=== PATIENT | male | born 1995 | race Caucasian/White ===

== ENCOUNTER 2017-10-05 13:03 | Emergency (ER) | payer MEDICAID ==
[~2017-10-05] VITALS: Ht 177.8 cm; Wt 158.0 kg
[2017-10-05 13:11] VITALS: BP 115/73; PULSE 82; RESP 19; TEMP 98.7; O2SAT 98
--- NOTE | 2017-10-05 13:27 | PD ---
HPI Chief Complaint: Allergic/Adverse Reaction Time Seen by Provider: 13:22 Travel History International Travel<30 days: No Contact w/Intl Traveler<30days: No Traveled to known affect area: No History of Present Illness HPI 22-year-old male with history of seizure disorder, presents emergency department for evaluation of swelling of his upper lip. Patient states he noticed he had a bump inside the left nare. His dad pulled some hairs from it and he thought that it would get better, however the lump only got worse and he woke up this morning with his lip swollen. He reports significant pressure with moderate pain at the site. It is constant. He has had no fever or chills. He has no other symptoms to report at this time. [facility] Social History Tobacco Use: No Allergies-Medications (Allergen,Severity, Reaction): Coded Allergies: divalproex sodium (Verified Allergy, Unknown, 10/05/17) lithium (Verified Allergy, Unknown, 10/05/17) Reported Meds & Prescriptions Reported Meds & Active Scripts Active Ibuprofen 800 Mg Tab 800 Mg PO Q8H PRN Keflex (Cephalexin) 500 Mg Cap 500 Mg PO Q6H 5 Days Bactrim DS (Sulfamethoxazole-Trimethoprim) 800-160 Mg Tab 1 Tab PO BID Reported Topiramate 200 Mg Tab 200 Mg PO BID Levetiracetam 1,000 Mg Tab 1,000 Mg PO BID Review of Systems Except as stated in HPI: all other systems reviewed are Neg Physical Exam Narrative GENERAL: Well-nourished, well-developed male patient in no acute distress SKIN: Focused skin assessment warm/dry. HEAD: Normocephalic. The top lip is edematous. EYES: No scleral icterus. No injection or drainage. ENT: Mucosa pink and moist. No erythema or exudates. No uvular edema. No uvular , palatal, or tonsillar deviation. Airway patent. Nasal turbinates appear normal without nasal blood, purulent drainage or septal hematoma. There is however a pustular lesion in the left nare along the septum. NECK: Supple, trachea midline. No JVD or lymphadenopathy. CARDIOVASCULAR: Regular rate and rhythm without murmurs, gallops, or rubs. RESPIRATORY: Breath sounds equal bilaterally. No accessory muscle use. Data Data Last Documented VS Vital Signs Date Time Temp Pulse Resp B/P (MAP) Pulse Ox O2 Delivery O2 Flow Rate FiO2 6/9/18 13:11 98.7 82 19 115/73 (87) 98 Orders Orders Wound Culture And Gram Stain (10/05/17 13:31) Dexamethasone Inj (Decadron Inj) (10/05/17 13:45) Ed Discharge Order (10/05/17 13:33) MDM Medical Decision Making Medical Screen Exam Complete: Yes Emergency Medical Condition: Yes Medical Record Reviewed: Yes Differential Diagnosis Pustule versus cellulitis versus abscess Narrative Course 22-year-old male presents emergency department for evaluation. Patient appears without distress. He does have a pustule in left nare with associated lip swelling. Patient will be treated for abscess and cellulitis. He is counseled on care. He is encouraged to follow-up with primary care provider and return immediately with acute worsening symptoms. Diagnosis Primary Impression: Abscess or cellulitis of nose, external Referrals: Primary Care Physician Patient Instructions: Cellulitis (ED), General Instructions Additional Instructions: Warm compresses Do not squeeze the area Follow-up with a primary care provider Return immediately with acute worsening symptoms Med/Other Pt SpecificInfo: Prescription(s) given Scripts Ibuprofen (Ibuprofen) 800 Mg Tab 800 MG PO Q8H Y for Pain/Inflammation, #30 TAB 0 Refills Prov: Cristiane Hoyt 10/05/17 Cephalexin (Keflex) 500 Mg Cap 500 MG PO Q6H for Infection for 5 Days, #20 CAP 0 Refills Prov: Cristiane Hoyt 10/05/17 Sulfamethoxazole-Trimethoprim (Bactrim DS) 800-160 Mg Tab 1 TAB PO BID for Infection, #20 TAB 0 Refills Prov: Cristiane Hoyt 10/05/17 Disposition: 01 DISCHARGE HOME Condition: Stable Cristiane Hoyt Oct 05, 2017 13:27
[2017-10-05] MEDS ORDERED: IBUP1TAB7 PO (13:35)
[2017-10-05] MEDS ORDERED: CEPH-460 PO (13:35)
[2017-10-05] MEDS ORDERED: BACT800T5 PO (13:35)
[2017-10-05] MEDS ORDERED: TOPI200T7 PO (13:45)
[2017-10-05] MEDS ORDERED: LEVE10003 PO (13:45)
[2017-10-05] MEDS ORDERED: DEXAMETHASONE SOD PHOS 20 MG/5 ML VIAL IM ONE (13:45)
== END 2017-10-05 14:00 | disposition home or self-care (01) ==
LOC: NEPD 13:03
DX: J34.0 Abscess, furuncle and carbuncle of nose (principal); B95.62 Methicillin resistant Staphylococcus aureus infection as the cause of diseases classified elsewhere
CPT/HCPCS: 86403; 87070; 87186; 96372; 99283; J1100; 87205